=== PATIENT | male | born 1985 | race Caucasian/White ===

== ENCOUNTER 2016-08-26 10:44 | Emergency (ER) | payer OTHER ==
[~2016-08-26] VITALS: Ht 171.4 cm; Wt 92.5 kg
[2016-08-26 10:46] VITALS: BP 118/79; PULSE 88; RESP 20; TEMP 98.7; O2SAT 96
--- NOTE | 2016-08-26 10:58 | PD ---
HPI Chief Complaint: Injury Time Seen by Provider: 10:58 Travel History International Travel<30 days: No Contact w/Intl Traveler<30days: No Traveled to known affect area: No History of Present Illness HPI 30-year-old male presents to the emergency Department with complaint of left shoulder pain since last night after stepping wrong [place] on his left shoulder. He denies hitting his head or loss of consciousness. Denies neck pain or back pain. Denies paresthesias, loss of sensation to the affected extremity. Reports decreased range of motion to the left shoulder secondary to pain. Denies fever, vomiting. He was seen previously at urgent care and was given Toradol injection for pain and was told to come to the ER for further evaluation. Has not taken any other medications or tried any other treatments to the base symptoms. No known allergies. Has no other medical complaints. No other modifying factors or associated signs and symptoms. PFSH Social History Tobacco Use: No Allergies-Medications (Allergen,Severity, Reaction): Coded Allergies: No Known Allergies (Unverified , 08/26/16) Reported Meds & Prescriptions Reported Meds & Active Scripts Active Robaxin (Methocarbamol) 500 Mg Tab 500 Mg PO QID PRN Ibuprofen 800 Mg Tab 800 Mg PO Q6HR PRN Review of Systems Except as stated in HPI: all other systems reviewed are Neg Physical Exam Narrative GENERAL: Well-nourished, well-developed male patient, in no acute distress SKIN: Warm and dry. HEAD: Atraumatic. Normocephalic. EYES: Pupils equal and round. No scleral icterus. No injection or drainage. ENT: Mucosa pink and moist. Airway patent. NECK: Supple. Trachea midline. CARDIOVASCULAR: Regular rate. RESPIRATORY: No accessory muscle use. GASTROINTESTINAL: Flat. MUSCULOSKELETAL: Left shoulder without erythema, edema, ecchymosis; tenderness on palpation to the lateral aspect; limited range of motion with less than 45 abduction; no obvious deformity; shoulders equal; joint stable. Left upper extremity supple and nontender 2+ radial pulse and sensory intact without erythema or edema. No obvious deformities. No clubbing. No cyanosis. No edema. NEUROLOGICAL: Awake and alert. Oriented 3. No obvious cranial nerve deficits. Motor grossly within normal limits. Normal speech. PSYCHIATRIC: Appropriate mood and affect; insight and judgment normal. Data Data Last Documented VS Vital Signs Date Time Temp Pulse Resp B/P Pulse Ox O2 Delivery O2 Flow Rate FiO2 08/26/16 10:46 98.7 88 20 118/79 96 Room Air Orders Shoulder, Complete (>2vws) (08/26/16 10:57) Sling Cradle Arm (08/26/16 ) MDM Medical Decision Making Medical Screen Exam Complete: Yes Emergency Medical Condition: Yes Medical Record Reviewed: Yes Differential Diagnosis Shoulder contusion, shoulder sprain, shoulder fracture, shoulder dislocation Narrative Course 30-year-old male with left shoulder injury after a mechanical trip and fall yesterday. Denies hitting his head or loss of consciousness. Denies neck pain or back pain. Left shoulder with less than 45 abduction. Shoulders are equal and joint stable. Patient was previously administered Toradol at urgent care prior to arrival to the ER. Left shoulder x-ray ordered. 1150: Left shoulder x-ray concludes possible before meals separation without fracture or dislocation. Arm sling provided for support. Instructed patient to follow up with orthopedic. Ibuprofen and Robaxin prescribed for home. Patient verbalizes understanding and agreement with treatment plan. Patient is medically cleared and stable for discharge. Discussed reasons to return to the emergency department. Instructed patient to follow up with primary care provider. Patient agrees with treatment plan. The patients vital signs are stable and the patient is stable for outpatient follow-up and treatment. Patient discharged home, stable and in no acute distress. Diagnosis Primary Impression: Injury of left shoulder Qualified Code: S49.92XA - Injury of left shoulder, initial encounter Referrals: Orthopedist Primary Care Physician Patient Instructions: General Instructions, Shoulder Sprain (ED) Additional Instructions: Tylenol or ibuprofen as needed and as directed to reduce pain and inflammation Rest, ice, and compress extremity to decrease pain and inflammation Arm sling for support Avoid aggravating activity; increase activity as tolerated Follow-up with primary care provider Follow-up with orthopedics as needed Return to the emergency department immediately with worsening symptoms Med/Other Pt SpecificInfo: Prescription(s) given Scripts Methocarbamol (Robaxin)500 Mg Tal482 Mg PO QID PRN (MUSCLE SPASM) #30 TAB Ref 0 Prov:Anny William PLUGGER 08/26/16 Ibuprofen 800 Mg Aig553 Mg PO Q6HR PRN (PAIN) #30 TAB Ref 0 Prov:Anny William PLUGGER 08/26/16 Disposition: 01 DISCHARGE HOME Condition: Stable (ERASED) Anny William August 26, 2016 10:58
[2016-08-26] MEDS ORDERED: IBUP800T23 PO (11:28)
[2016-08-26] MEDS ORDERED: ROBA500T PO (11:28)
--- NOTE | 2016-08-26 11:34 | RADRPT ---
EXAM DATE/TIME: 08/26/2016 11:13 [facility] COMPARISON: No previous studies available for comparison. INDICATIONS : Right shoulder pain, fell MEDICAL HISTORY : None. SURGICAL HISTORY : None. ENCOUNTER: Initial ACUITY: 1 day PAIN SCORE: 10/10 LOCATION: Left Shoulder FINDINGS: Multiple view examination of the left shoulder demonstrates no evidence of fracture or dislocation. The glenohumeral is maintained. The distal clavicle appears to be slightly displaced superiorly in re lation to the acromion on several views There is normal range of motion between internal and external rotation. Bony mineralization is normal. CONCLUSION: Possible a.c. separation. No fracture. Chapo Shafer MD on August 26, 2016 at 11:32 Board Certified Radiologist. This report was verified electronically.
== END 2016-08-26 12:23 | disposition home or self-care (01) ==
LOC: NEPK 10:44
DX: S49.92XA Unspecified injury of left shoulder and upper arm, initial encounter (principal); W01.0XXA Fall on same level from slipping, tripping and stumbling without subsequent striking against object, initial encounter; Y93.01 Activity, walking, marching and hiking; Y92.832 Beach as the place of occurrence of the external cause
CPT/HCPCS: 73030; 99283